=== PATIENT | male | born 1980 | race Caucasian/White ===

== ENCOUNTER 2020-01-25 15:42 | Emergency (ER) | payer OTHER ==
[~2020-01-25] VITALS: Ht 182.9 cm; Wt 109.0 kg
[2020-01-25 15:45] VITALS: BP 136/81
--- NOTE | 2020-01-25 16:17 | PHYS DOC ---
Past History Past Medical History: No Pertinent History Adult General Chief Complaint Chief Complaint: FOOT INJURY PAIN [facility] HPI Patient is a 39-year-old male who presents with right foot pain. Onset was 6 days ago while running. Patient is [employer], reports running on uneven pavement, reports planting on the ball of his foot wrong, denies any eversion or inversion type mechanisms of injury. Patient was able to get through workout but had pain at the balls of his feet and and distal phalanges. Patient scheduled visit with outpatient PCP who performed an x-ray, he was told that if no one contacted him that it was okay. He reports not being contacted regarding these results. Patient has been resting his foot but has not done anything to help alleviate pain. Pain is focal to distal phalanges. Patient here because of ongoing pain today. Of note patient has no fever, no recent travel, no changes in motor or sensory function, no focal neurological deficits reported Review of Systems Review of Systems Fourteen body systems of review of systems have been reviewed. See HPI for pertinent positives and negative responses, other mahoney all other systems are negative, non-pertinent or non-contributory Allergies Allergies Allergies Coded Allergies Type Severity Reaction Last Updated Verified No Known Drug Allergies 01/25/20 No Physical Exam Physical Exam Constitutional: Well developed, well nourished, no acute distress, non-toxic appearance. HENT: Normocephalic, atraumatic, bilateral external ears normal, oropharynx mois t, no oral exudates, nose normal. Eyes: PERRLA, EOMI, conjunctiva normal, no discharge. Neck: Normal range of motion, no tenderness, supple, no stridor. Cardiovascular: Heart rate regular per monitor Lungs & Thorax: Symmetric bilateral chest rise Abdomen: Bowel sounds normal, soft, no tenderness, no masses, no pulsatile masses. Nonsurgical abdomen, no peritoneal signs Skin: Warm, dry, no erythema, no rash. Back: No tenderness, no CVA tenderness. Extremities: No tenderness, no cyanosis, no clubbing, ROM intact, no edema. Foot and Ankle Proximal Tibia nontender Medial malleolus nontender Lateral malleolus nontender Calcaneus nontender Tarsometatarsal region nontender Base of 5th nontender Rest of foot and ankle without marked tenderness Varus and Valgus Stress of ankle joint without significant laxity Full Range of Motion with full strength Skin on plantar section of midfoot with ecchymosis Capillary refill <2seconds and distal Sensation to light touch in tact per routine Compartments surrounding are soft Neurologic: Alert and oriented X 3, grossly normal motor & sensory function, no focal deficits noted. Psychologic: Affect normal, judgement normal, mood normal.a EKG EKG [] Radiology/Procedures Radiology/Procedures [] Course & Med Decision Making Course & Med Decision Making Ambulatory patient seen on ER arrival ABCs unremarkable Comprehensive history and physical exam obtained, [place] ankle and foot rules negative, consistent with likely negative radiographs performed in outpatient setting Supportive care advised. Patient has not been doing anything besides rest Educated patient on NSAID/Tylenol use for as needed pain, also instructed on rice protocol Strict return precautions discussed with good understanding by patient, all questions and concerns addressed prior to ER departure Patient to follow-up with primary care as previously scheduled in 2 days time Martha Disclaimer Martha Disclaimer This electronic medical record was generated, in whole or in part, using a voice recognition dictation system. Departure Departure: Impression: Primary Impression: Contusion of right foot Disposition: HOME/RESIDENCE PRIOR TO ADM Condition: STABLE Referrals: ADELA POSADA (PCP) Patient Instructions: Foot Contusion, RICE - Routine Care for Injuries Justification of Admission: Justification of Admission: Justification of Admission Dx: N/A TITUS WILLAMS DO Jan 25, 2020 16:17
== END 2020-01-25 16:20 | disposition home or self-care (01) ==
LOC: ER 15:42
DX: S90.31XA Contusion of right foot, initial encounter (principal); X58.XXXA Exposure to other specified factors, initial encounter; Y93.02 Activity, running; Y92.89 Other specified places as the place of occurrence of the external cause; Y99.8 Other external cause status
CPT/HCPCS: 99282